=== PATIENT | male | born 1945 | race Caucasian/White ===

== ENCOUNTER → 2016-11-26 | Outpatient (CLI) | payer MEDICARE, BC ==
--- NOTE | 2016-11-26 22:10 | RADRPT ---
PROCEDURE: XR Left Hip and pelvis. CLINICAL INDICATION: Left hip pain. Pelvic pain. Postop. TECHNIQUE: Three views. Frontal pelvis. Frontal and lateral left hip. COMPARISON: No prior studies are available for comparison. FINDINGS: There is no fracture or dislocation. The soft tissues are normal. There is a left hip total arthroplasty which appears satisfactory. There are mild degenerative changes of the right hip with osteophytes noted. There is no lytic or blastic lesion. The upper pelvis is not included on the image. IMPRESSION: 1. Satisfactory postoperative appearance of the left hip. 2. Mild degenerative changes of the right hip. RPTAT: QQ .Gerber Barahona MD, MD Date Time Electronically viewed and signed by .Gerber Barahona MD, on 11/26/2016 22:10 .R/
--- NOTE | 2016-11-26 22:12 | RADRPT ---
PROCEDURE: Left knee radiographs. CLINICAL INDICATION: Left knee pain. TECHNIQUE: Four views. Weight bearing. Frontal, lateral, oblique, and patellar view. COMPARISON: No prior studies are available for comparison. FINDINGS: There is no fracture or dislocation. The soft tissues are normal. There are degenerative changes with small osteophytes arising from the joint margins. There is no lytic or blastic lesion. There is no radiopaque foreign body. IMPRESSION: 1. 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 2. No acute abnormality. RPTAT: QQ .Gerber Barahona MD, MD Date Time Electronically viewed and signed by .Gerber Barahona MD, MD on 11/26/2016 22:11 .R/
== END | disposition home or self-care (01) ==
LOC: HKI 15:29
PROVIDERS: ATTEND Orthopaedic Surgery
DX: M25.562 Pain in left knee (principal); Z96.642 Presence of left artificial hip joint
CPT/HCPCS: 73502; 73564; 93312; 93320; 93325; G0463